=== PATIENT | female | born 1975 | race Caucasian/White ===

== ENCOUNTER 2020-01-16 03:40 | Day surgery (SDC) | payer BC ==
[2020-01-16] MEDS ORDERED: Sodium Chloride 0.9% 10 ML Syringe FLUSH PRN (04:01)
[2020-01-16] MEDS ORDERED: Acetaminophen 325 MG Tab PO ONE (04:02)
[2020-01-16] MEDS ORDERED: Sodium Chloride 0.9% 1,000 ML IV ONE (04:03)
[2020-01-16] MEDS ORDERED: Iopamidol 755 Mg/ML 100 ML Bottle IV ONE (04:35)
[2020-01-16] MEDS ORDERED: Morphine 4 MG/ML VIAL IVPUSH ONE (05:16)
[2020-01-16] MEDS ORDERED: Ondansetron 4 MG/2 ML SDV IVPUSH ONE ×2 (05:18→08:03)
[2020-01-16] MEDS ORDERED: cefOXitin 2 GM Vial IVPUSH ONE (06:15)
[2020-01-16] MEDS: Lactated Ringers 1,000 ML IV SCH ×3 (06:20→21:33)
[2020-01-16] MEDS ORDERED: Ketorolac 60 MG/2 ML SDV IM ONE (06:49)
--- NOTE | 2020-01-16 07:12 | PCM.HP.2 ---
H&P History of Present Illness - General Date of Service: 01/16/20 Admit Problem/Dx: Admission Diagnosis/Problem Admission Diagnosis/Problem Appendicitis History Limitations: Reports: No Limitations - History of Present Illness Initial Comments - Free Text/Narative: Pt presented to the ED with a complaint of abd pain. It was located in the umbilical area. Was seen in the walk in at [facility]. The pain persisted and got worse. Still persisted. On work up noted to have a shift to the left. CT no ilda to have acute appendicitis. Did have a fever. Covid was negative. R upper abdomen Pain Score (Numeric/FACES): 8 - Related Data Allergies/Adverse Reactions: Allergies Allergy/AdvReac Type Severity Reaction Status Date / Time ketoprofen Allergy Swelling Verified 01/16/20 03:49 Home Medications: Home Meds Amitriptyline [Elavil] 50 mg BEDTIME 01/16/20 [History] L.acidoph,Paracasei, B.lactis [Probiotic] 1 each PO BID 01/16/20 [History] Magnesium 400 mg PO DAILY 01/16/20 [History] Nitrofurantoin [place]/Macrocryst [Nitrofurantoin Reeves-MCR] 100 mg BID 01/16/20 [History] [place]-3S/DHA/Epa/Fish Oil/D3 [Fish Oil Gummies] 1 tab DAILY 01/16/20 [History] Thyroid,Pork [Nature-Throid] 130 mg 1700 01/16/20 [History] Thyroid,Pork [Nature-Throid] 195 mg DAILY 01/16/20 [History] Zinc Gluconate-Zinc Picolinate [Zinc] 30 mg PO BEDTIME 01/16/20 [History] buPROPion [Wellbutrin] 150 mg BID 01/16/20 [History] Past Medical History Cardiovascular History: Reports: Hypertension Gastrointestinal History: Reports: GERD Genitourinary History: Reports: None 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: Reports: Endometriosis, Other OB/BYN History: A2 Musculoskeletal History: Reports: Fibromyalgia, Other (See Below) Other Musculoskeletal History: hx hip dysplasia Neurological History: Reports: Migraines Psychiatric History: Reports: Anxiety, Depression Endocrine/Metabolic History: Reports: Hypothyroidism, Obesity/BMI 30+ Oncologic (Cancer) History: Reports: None - Infectious Disease History Infectious Disease History: Reports: Chicken Pox - Past Surgical History Head Surgeries/Procedures: Reports: None HEENT Surgical History: Reports: Adenoidectomy, Myringotomy w Tube(s), Oral Surgery, Tonsillectomy GI Surgical History: Reports: Cholecystectomy, EGD, Hernia Repair/Other Female Surgical History: Reports: Tubal Ligation Oncologic Surgical History: Reports: Bone Marrow Aspiration Social & Family History - Family History Family Medical History: Noncontributory - Tobacco Use Smoking Status *Q: Former Smoker Used Tobacco, but Quit: Yes Month/Year Tobacco Last Used: 1999 - Caffeine Use Caffeine Use: Reports: Coffee, Soda - Recreational Drug Use Recreational Drug Use: No H&P Review of Systems - Review of Systems: Review Of Systems: See Below General: Reports: Fever HEENT: Reports: No Symptoms Pulmonary: Reports: No Symptoms Cardiovascular: Reports: No Symptoms Gastrointestinal: Reports: Abdominal Pain Genitourinary: Reports: No Symptoms Musculoskeletal: Reports: No Symptoms Exam - Exam Exam: See Below - Vital Signs Vital Signs: Last Vital Signs Temp 101.5 F H 01/16/20 05:12 Pulse 103 H 01/16/20 05:12 Resp 18 01/16/20 05:12 BP 127/73 01/16/20 05:12 Pulse Ox 97 01/16/20 05:12 Weight: 99.79 kg - Exam General: Alert, Oriented, Cooperative HEENT: PERRLA, Conjunctiva Clear, EOMI, Pupils Reactive, TMs Clear Lungs: Clear to Auscultation, Normal Respiratory Effort Cardiovascular: Regular Rate, Regular Rhythm GI/Abdominal Exam: Normal Bowel Sounds, Soft, Non-Tender Back Exam: Normal Inspection Extremities: Normal Inspection Skin: Warm, Dry, Intact - Patient Data Lab Results Last 24 hrs: Laboratory Results - last 24 hr 01/16/20 01/16/20 01/16/20 Range/Units 03:58 03:58 03:58 WBC 6.3 (4.5-12.0) X10-3/uL RBC 4.51 (3.23-5.20) x10(6)uL Hgb 13.3 (11.5-15.5) g/dL Hct 41.0 (30.0-51.3) % MCV 91.0 (80-96) fL MCH 29.5 (27.7-33.6) pg MCHC 32.5 (32.2-35.4) g/dL RDW 12.7 (11.5-15.5) % Plt Count 271 (125-369) X10(3)uL MPV 7.4 (7.4-10.4) fL Add Manual Diff Yes Neutrophils % (Manual) 65 (46-82) % Band Neutrophils % 11 H (0-6) % Lymphocytes % (Manual) 17 (13-37) % Monocytes % (Manual) 7 (4-12) % Sodium 139 (135-145) mmol/L Potassium 3.7 (3.5-5.3) mmol/L Chloride 103 (100-110) mmol/L Carbon Dioxide 26 (21-32) mmol/L BUN 6 L (7-18) mg/dL Creatinine 0.8 (0.55-1.02) mg/dL Est Cr Clr Drug Dosing 80.75 mL/min Estimated GFR (MDRD) > 60 (>60) BUN/Creatinine Ratio 7.5 L (9-20) Glucose 131 H (80-116) mg/dL Calcium 8.4 L (8.6-10.2) mg/dL Total Bilirubin 0.9 (0.1-1.3) mg/dL AST 46 H (5-25) IU/L ALT 56 H (12-36) U/L Alkaline Phosphatase 109 (56-112) IU/L Total Protein 7.0 (6.0-8.0) g/dL Albumin 3.1 L (3.5-5.2) g/dL Globulin 3.9 g/dL Albumin/Globulin Ratio 0.8 Amylase 27 (25-115) U/L Lipase (73-393) U/L Urine Color (YELLOW) Urine Appearance (CLEAR) Urine pH (5.0-6.5) Ur Specific [place] (1.010-1.025) Urine Protein (NEGATIVE) mg/dL Urine Glucose (UA) (NORMAL) mg/dL Urine Ketones (NEGATIVE) mg/dL Urine Occult Blood (NEGATIVE) Urine Nitrite (NEGATIVE) Urine Bilirubin (NEGATIVE) Urine Urobilinogen (NEGATIVE) mg/dL Ur Leukocyte Esterase (NEGATIVE) Urine RBC (0-5) Urine WBC (0-5) Ur Squamous Epith Cells (NS,R,O) Urine Bacteria (NS) Urine Mucus (NS) SARS Virus RNA (PCR) (NEGATIVE) 01/16/20 01/16/20 01/16/20 Range/Units 03:58 04:03 05:50 WBC (4.5-12.0) X10-3/uL RBC (3.23-5.20) x10(6)uL Hgb (11.5-15.5) g/dL Hct (30.0-51.3) % MCV (80-96) fL MCH (27.7-33.6) pg MCHC (32.2-35.4) g/dL RDW (11.5-15.5) % Plt Count (125-369) X10(3)uL MPV (7.4-10.4) fL Add Manual Diff Neutrophils % (Manual) (46-82) % Band Neutrophils % (0-6) % Lymphocytes % (Manual) (13-37) % Monocytes % (Manual) (4-12) % Sodium (135-145) mmol/L Potassium (3.5-5.3) mmol/L Chloride (100-110) mmol/L Carbon Dioxide (21-32) mmol/L BUN (7-18) mg/dL Creatinine (0.55-1.02) mg/dL Est Cr Clr Drug Dosing mL/min Estimated GFR (MDRD) (>60) BUN/Creatinine Ratio (9-20) Glucose (80-116) mg/dL Calcium (8.6-10.2) mg/dL Total Bilirubin (0.1-1.3) mg/dL AST (5-25) IU/L ALT (12-36) U/L Alkaline Phosphatase (56-112) IU/L Total Protein (6.0-8.0) g/dL Albumin (3.5-5.2) g/dL Globulin g/dL Albumin/Globulin Ratio Amylase (25-115) U/L Lipase 59 L (73-393) U/L Urine Color Yellow (YELLOW) Urine Appearance Slightly cloudy (CLEAR) Urine pH 6.0 (5.0-6.5) Ur Specific [place] 1.020 (1.010-1.025) Urine Protein 500 H (NEGATIVE) mg/dL Urine Glucose (UA) 100 H (NORMAL) mg/dL Urine Ketones 50 H (NEGATIVE) mg/dL Urine Occult Blood Moderate H (NEGATIVE) Urine Nitrite Negative (NEGATIVE) Urine Bilirubin Negative (NEGATIVE) Urine Urobilinogen Normal (NEGATIVE) mg/dL Ur Leukocyte Esterase Small H (NEGATIVE) Urine RBC 5-10 H (0-5) Urine WBC 5-10 H (0-5) Ur Squamous Epith Cells Few H (NS,R,O) Urine Bacteria Few H (NS) Urine Mucus Few H (NS) SARS Virus RNA (PCR) Negative (NEGATIVE) Result Diagrams: 01/16/20 03:58 01/16/20 03:58 Augustin Results Last 24 hrs: Microbiology 01/16/20 04:00 Influenza Type A Antigen Screen - Final Nasal, Right NEGATIVE INFLUENZA A VIRUS AG REFERENCE RANGE: NEGATIVE Influenza Type B Antigen Screen - Final NEGATIVE INFLUENZA B VIRUS AG REFERENCE RANGE: NEGATIVE Sepsis Event Note - Evaluation Sepsis Screening Result: Possible Sepsis Risk - Focused Exam Vital Signs: Vital Signs Temp Pulse Resp BP Pulse Ox 01/16/20 05:12 101.5 F H 103 H 18 127/73 97 01/16/20 03:40 103.1 F H 109 H 22 H 137/87 100 Date Exam was Performed: 01/16/20 Time Exam was Performed: 07:07 *Q Meaningful Use (ADM) - VTE *Q VTE Pharmacological Contraindications *Q: Patient Scheduled Surgery - Problem List (1) Acute appendicitis SNOMED Code(s): 27753302 ICD Code: K35.80 - UNSPECIFIED ACUTE APPENDICITIS Status: Acute Current Visit: Yes Qualifiers: Acute appendicitis type: with localized peritonitis Appendicitis gangrene presence: unspecified whether gangrene present Appendicitis perforation presence: without perforation Appendicitis abscess presence: without abscess Qualified Code(s): K35.30 - Acute appendicitis with localized peritonitis, without perforation or gangrene Problem List Initiated/Reviewed/Updated: Yes Orders Last 24hrs: Active Orders 24 hr Category Date Time Status Patient Status [ADT] Routine ADT 01/16/20 07:05 Ordered Patient to Empty Bladder [RC] ASDIRECTED Care 01/16/20 07:05 Ordered Verify Patient Consent Obtain [RC] ASDIRECTED Care 01/16/20 07:05 Ordered Nothing Per Oral Diet [DIET] Diet 01/16/20 Breakfast Ordered Abdomen Pelvis w Cont [CT] Stat Exams 01/16/20 04:02 Taken CULTURE BLOOD [BC] Urgent Lab 01/16/20 03:58 Received CULTURE BLOOD [BC] Urgent Lab 01/16/20 04:05 Received Lactated Ringers [Ringers, Lactated] 1,000 ml Med 01/16/20 05:45 Active IV ASDIRECTED Sodium Chloride 0.9% [Saline Flush] Med 01/16/20 04:01 Active 10 ml FLUSH ASDIRECTED PRN Blood Culture x2 Reflex Set [OM.PC] Urgent Oth 01/16/20 04:00 Ordered Isolation [COMM] Routine Oth 01/16/20 04:01 Ordered Peripheral IV Insertion Adult [OM.PC] Routine Oth 01/16/20 04:00 Ordered Sequential Compression Device [OM.PC] Routine Oth 01/16/20 07:05 Ordered Resuscitation Status Routine Resus Stat 01/16/20 07:05 Ordered Medication Orders Lactated Ringer's (Ringers, Lactated) 1,000 mls @ 125 mls/hr IV ASDIRECTED SUGAR Last Admin: 01/16/20 06:20 Dose: 125 mls/hr Documented by: JENY Sodium Chloride (Saline Flush) 10 ml FLUSH ASDIRECTED PRN PRN Reason: Keep Vein Open Assessment/Plan Comment:: Will plan a lap approach if possible. She reports a mesh repair of a ventral wall hernia. If needed will convert to open. Risks of bleeding, infection, injury to bowel bladder and blood vessels explained to the pt. They expressed understanding and asks us to proceed. - Mortality Measure Prognosis:: Good
--- NOTE | 2020-01-16 07:31 | EDM.PDOC ---
ED HPI GENERAL MEDICAL PROBLEM - General Chief Complaint: Fever Stated Complaint: SHAKING Time Seen by Provider: 01/16/20 04:00 Source of Information: Reports: Patient History Limitations: Reports: No Limitations - History of Present Illness INITIAL COMMENTS - FREE TEXT/NARRATIVE: pt c/o dull pain all across lower abd X 3 days, non radiating, report fever and nausea, denies emesis or changes with her bowel movements, indicate a Hx of abd hernia repair and denies any other Hx of abd surgeries. denies any blood in stool, any urinary sx or any other associated sx or concerns. 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 R upper abdomen Pain Score (Numeric/FACES): 8 - Related Data Allergies Allergy/AdvReac Type Severity Reaction Status Date / Time ketoprofen Allergy Swelling Verified 01/16/20 03:49 Home Meds: Home Meds Amitriptyline [Elavil] 50 mg BEDTIME 01/16/20 [History] L.acidoph,Paracasei, B.lactis [Probiotic] 1 each PO BID 01/16/20 [History] Magnesium 400 mg PO DAILY 01/16/20 [History] Nitrofurantoin [place]/Macrocryst [Nitrofurantoin Miner-MCR] 100 mg BID 01/16/20 [History] [place]-3S/DHA/Epa/Fish Oil/D3 [Fish Oil Gummies] 1 tab DAILY 01/16/20 [History] Thyroid,Pork [Nature-Throid] 130 mg 1700 01/16/20 [History] Thyroid,Pork [Nature-Throid] 195 mg DAILY 01/16/20 [History] Zinc Gluconate-Zinc Picolinate [Zinc] 30 mg PO BEDTIME 01/16/20 [History] buPROPion [Wellbutrin] 150 mg BID 01/16/20 [History] Past Medical History Cardiovascular History: Reports: Hypertension Gastrointestinal History: Reports: GERD Genitourinary History: Reports: None 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: Reports: Endometriosis, 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: A2 Musculoskeletal History: Reports: Fibromyalgia, Other (See Below) Other Musculoskeletal History: hx hip dysplasia Neurological History: Reports: Migraines Psychiatric History: Reports: Anxiety, Depression Endocrine/Metabolic History: Reports: Hypothyroidism, Obesity/BMI 30+ Oncologic (Cancer) History: Reports: None - Infectious Disease History Infectious Disease History: Reports: Chicken Pox - Past Surgical History Head Surgeries/Procedures: Reports: None HEENT Surgical History: Reports: Adenoidectomy, Myringotomy w Tube(s), Oral Surgery, Tonsillectomy GI Surgical History: Reports: Cholecystectomy, EGD, Hernia Repair/Other Female Surgical History: Reports: Tubal Ligation Oncologic Surgical History: Reports: Bone Marrow Aspiration Social & Family History - Family History Family Medical History: Noncontributory - Tobacco Use Smoking Status *Q: Former Smoker Used Tobacco, but Quit: Yes Month/Year Tobacco Last Used: 1999 - Caffeine Use Caffeine Use: Reports: Coffee, Soda - Recreational Drug Use Recreational Drug Use: No ED ROS GENERAL - Review of Systems Review Of Systems: See Below Constitutional: Reports: Fever, Fatigue HEENT: Reports: No Symptoms Respiratory: Reports: No Symptoms Cardiovascular: Reports: No Symptoms GI/Abdominal: Reports: Abdominal Pain, Anorexia, Nausea. Denies: Black Stool, Bloody Stool, Diarrhea, Distension, Vomiting : Reports: No Symptoms Musculoskeletal: Reports: No Symptoms Skin: Reports: No Symptoms Neurological: Reports: No Symptoms ED EXAM, GENERAL - Physical Exam Exam: See Below Exam Limited By: No Limitations General Appearance: Alert, Mild Distress, Moderate Distress Eye Exam: Bilateral Eye: Normal Inspection Ears: Normal External Exam Nose: Normal Inspection Throat/Mouth: Normal Inspection, Normal Oropharynx Head: Atraumatic, Normocephalic Neck: Normal Inspection, Supple, Non-Tender Respiratory/Chest: No Respiratory Distress, Lungs Clear Cardiovascular: Normal Peripheral Pulses, Regular Rate, Rhythm, No Edema, No Murmur GI/Abdominal: Normal Bowel Sounds, Soft, Tender (tender across lower abd , no guarding, pt is obese .) Back Exam: Normal Inspection Extremities: Normal Inspection Neurological: Alert, Oriented, CN II-XII Intact, No Motor/Sensory Deficits Course - Vital Signs Text/Narrative:: labs and CT results were explained to pt. pt is comfortable with fluids , zofran and morphine, last meal was at 9 PM , pt had PO fluids around 3 am. pt has acute appendicitis. Dr Craig was consulted and he will assume pt care. Last Recorded V/S: Last Vital Signs Temp 38.6 C H 01/16/20 05:12 Pulse 103 H 01/16/20 05:12 Resp 18 01/16/20 05:12 BP 127/73 01/16/20 05:12 Pulse Ox 97 01/16/20 05:12 - Orders/Labs/Meds Orders: Active Orders 24 hr Category Date Time Status Patient Status [ADT] Routine ADT 01/16/20 07:05 Active Patient to Empty Bladder [RC] ASDIRECTED Care 01/16/20 07:05 Active Verify Patient Consent Obtain [RC] ASDIRECTED Care 01/16/20 07:05 Active Nothing Per Oral Diet [DIET] Diet 01/16/20 Breakfast Ordered Abdomen Pelvis w Cont [CT] Stat Exams 01/16/20 04:02 Taken CULTURE BLOOD [BC] Urgent Lab 01/16/20 03:58 Received CULTURE BLOOD [BC] Urgent Lab 01/16/20 04:05 Received Lactated Ringers [Ringers, Lactated] 1,000 ml Med 01/16/20 05:45 Active IV ASDIRECTED Sodium Chloride 0.9% [Saline Flush] Med 01/16/20 04:01 Active 10 ml FLUSH ASDIRECTED PRN Blood Culture x2 Reflex Set [OM.PC] Urgent Oth 01/16/20 04:00 Ordered Isolation [COMM] Routine Oth 01/16/20 04:01 Ordered Peripheral IV Insertion Adult [OM.PC] Routine Oth 01/16/20 04:00 Ordered Sequential Compression Device [OM.PC] Routine Oth 01/16/20 07:05 Ordered Resuscitation Status Routine Resus Stat 01/16/20 07:05 Ordered Medication Orders Lactated Ringer's (Ringers, Lactated) 1,000 mls @ 125 mls/hr IV ASDIRECTED SUGAR Last Admin: 01/16/20 06:20 Dose: 125 mls/hr Documented by: JENY Sodium Chloride (Saline Flush) 10 ml FLUSH ASDIRECTED PRN PRN Reason: Keep Vein Open Labs: Laboratory Tests 01/16/20 01/16/20 01/16/20 Range/Units 03:58 03:58 03:58 WBC 6.3 (4.5-12.0) X10-3/uL RBC 4.51 (3.23-5.20) x10(6)uL Hgb 13.3 (11.5-15.5) g/dL Hct 41.0 (30.0-51.3) % MCV 91.0 (80-96) fL MCH 29.5 (27.7-33.6) pg MCHC 32.5 (32.2-35.4) g/dL RDW 12.7 (11.5-15.5) % Plt Count 271 (125-369) X10(3)uL MPV 7.4 (7.4-10.4) fL Add Manual Diff Yes Neutrophils % (Manual) 65 (46-82) % Band Neutrophils % 11 H (0-6) % Lymphocytes % (Manual) 17 (13-37) % Monocytes % (Manual) 7 (4-12) % Sodium 139 (135-145) mmol/L Potassium 3.7 (3.5-5.3) mmol/L Chloride 103 (100-110) mmol/L Carbon Dioxide 26 (21-32) mmol/L BUN 6 L (7-18) mg/dL Creatinine 0.8 (0.55-1.02) mg/dL Est Cr Clr Drug Dosing 80.75 mL/min Estimated GFR (MDRD) > 60 (>60) BUN/Creatinine Ratio 7.5 L (9-20) Glucose 131 H (80-116) mg/dL Calcium 8.4 L (8.6-10.2) mg/dL Total Bilirubin 0.9 (0.1-1.3) mg/dL AST 46 H (5-25) IU/L ALT 56 H (12-36) U/L Alkaline Phosphatase 109 (56-112) IU/L Total Protein 7.0 (6.0-8.0) g/dL Albumin 3.1 L (3.5-5.2) g/dL Globulin 3.9 g/dL Albumin/Globulin Ratio 0.8 Amylase 27 (25-115) U/L Lipase (73-393) U/L Urine Color (YELLOW) Urine Appearance (CLEAR) Urine pH (5.0-6.5) Ur Specific [place] (1.010-1.025) Urine Protein (NEGATIVE) mg/dL Urine Glucose (UA) (NORMAL) mg/dL Urine Ketones (NEGATIVE) mg/dL Urine Occult Blood (NEGATIVE) Urine Nitrite (NEGATIVE) Urine Bilirubin (NEGATIVE) Urine Urobilinogen (NEGATIVE) mg/dL Ur Leukocyte Esterase (NEGATIVE) Urine RBC (0-5) Urine WBC (0-5) Ur Squamous Epith Cells (NS,R,O) Urine Bacteria (NS) Urine Mucus (NS) SARS Virus RNA (PCR) (NEGATIVE) 01/16/20 01/16/20 01/16/20 Range/Units 03:58 04:03 05:50 WBC (4.5-12.0) X10-3/uL RBC (3.23-5.20) x10(6)uL Hgb (11.5-15.5) g/dL Hct (30.0-51.3) % MCV (80-96) fL MCH (27.7-33.6) pg MCHC (32.2-35.4) g/dL RDW (11.5-15.5) % Plt Count (125-369) X10(3)uL MPV (7.4-10.4) fL Add Manual Diff Neutrophils % (Manual) (46-82) % Band Neutrophils % (0-6) % Lymphocytes % (Manual) (13-37) % Monocytes % (Manual) (4-12) % Sodium (135-145) mmol/L Potassium (3.5-5.3) mmol/L Chloride (100-110) mmol/L Carbon Dioxide (21-32) mmol/L BUN (7-18) mg/dL Creatinine (0.55-1.02) mg/dL Est Cr Clr Drug Dosing mL/min Estimated GFR (MDRD) (>60) BUN/Creatinine Ratio (9-20) Glucose (80-116) mg/dL Calcium (8.6-10.2) mg/dL Total Bilirubin (0.1-1.3) mg/dL AST (5-25) IU/L ALT (12-36) U/L Alkaline Phosphatase (56-112) IU/L Total Protein (6.0-8.0) g/dL Albumin (3.5-5.2) g/dL Globulin g/dL Albumin/Globulin Ratio Amylase (25-115) U/L Lipase 59 L (73-393) U/L Urine Color Yellow (YELLOW) Urine Appearance Slightly cloudy (CLEAR) Urine pH 6.0 (5.0-6.5) Ur Specific [place] 1.020 (1.010-1.025) Urine Protein 500 H (NEGATIVE) mg/dL Urine Glucose (UA) 100 H (NORMAL) mg/dL Urine Ketones 50 H (NEGATIVE) mg/dL Urine Occult Blood Moderate H (NEGATIVE) Urine Nitrite Negative (NEGATIVE) Urine Bilirubin Negative (NEGATIVE) Urine Urobilinogen Normal (NEGATIVE) mg/dL Ur Leukocyte Esterase Small H (NEGATIVE) Urine RBC 5-10 H (0-5) Urine WBC 5-10 H (0-5) Ur Squamous Epith Cells Few H (NS,R,O) Urine Bacteria Few H (NS) Urine Mucus Few H (NS) SARS Virus RNA (PCR) Negative (NEGATIVE) Meds: Medications Generic Name Dose Route Start Last Admin Trade Name Freq PRN Reason Stop Dose Admin Lactated Ringer's 1,000 mls @ 125 mls/hr 01/16/20 05:45 01/16/20 06:20 Ringers, Lactated IV 125 mls/hr ASDIRECTED SUGAR Administration Sodium Chloride 10 ml 01/16/20 04:01 Saline Flush FLUSH ASDIRECTED PRN Keep Vein Open Discontinued Medications Generic Name Dose Route Start Last Admin Trade Name Freq PRN Reason Stop Dose Admin Acetaminophen 650 mg 01/16/20 04:02 01/16/20 04:13 Tylenol PO 01/16/20 04:03 650 mg NOW ONE Administration Cefoxitin Sodium 2 gm 01/16/20 06:15 01/16/20 06:35 Mefoxin IVPUSH 01/16/20 06:16 2 gm ONETIME ONE Administration Sodium Chloride 1,000 mls @ 200 mls/hr 01/16/20 04:03 01/16/20 04:17 Normal Saline IV 01/16/20 09:02 200 mls/hr .BOLUS ONE Administration Iopamidol 100 ml 01/16/20 04:35 01/16/20 04:46 Isovue-370 (76%) IV 01/16/20 04:36 100 ml . DIRECTED ONE Administration Morphine Sulfate 4 mg 01/16/20 05:16 01/16/20 05:40 Morphine IVPUSH 01/16/20 05:17 4 mg ONETIME ONE Administration Ondansetron HCl 4 mg 01/16/20 05:18 01/16/20 05:38 Zofran IVPUSH 01/16/20 05:19 4 mg ONETIME ONE Administration Departure - Departure Time of Disposition: 06:05 Disposition: Admitted As Inpatient 66 Clinical Impression: Acute appendicitis Qualifiers: Acute appendicitis type: with localized peritonitis Appendicitis gangrene presence: unspecified whether gangrene present Appendicitis perforation presence: without perforation Appendicitis abscess presence: without abscess Qualified Code(s): K35.30 - Acute appendicitis with localized peritonitis, without perforation or gangrene - Discharge Information Referrals: PCP,Not In Area [Primary Care Provider] - Sepsis Event Note (ED) - Evaluation Sepsis Screening Result: Possible Sepsis Risk - Focused Exam Vital Signs: Vital Signs Temp Pulse Resp BP Pulse Ox 01/16/20 05:12 38.6 C H 103 H 18 127/73 97 01/16/20 03:40 39.5 C H 109 H 22 H 137/87 100 - My Orders Last 24 Hours: My Active Orders 01/16/20 03:58 CULTURE BLOOD [BC] Urgent 01/16/20 04:00 Blood Culture x2 Reflex Set [OM.PC] Urgent Peripheral IV Insertion Adult [OM.PC] Routine 01/16/20 04:01 Sodium Chloride 0.9% [Saline Flush] 10 ml FLUSH ASDIRECTED PRN Isolation [COMM] Routine 01/16/20 04:02 Abdomen Pelvis w Cont [CT] Stat 01/16/20 04:05 CULTURE BLOOD [BC] Urgent - Assessment/Plan Last 24 Hours: My Active Orders 01/16/20 03:58 CULTURE BLOOD [BC] Urgent 01/16/20 04:00 Blood Culture x2 Reflex Set [OM.PC] Urgent Peripheral IV Insertion Adult [OM.PC] Routine 01/16/20 04:01 Sodium Chloride 0.9% [Saline Flush] 10 ml FLUSH ASDIRECTED PRN Isolation [COMM] Routine 01/16/20 04:02 Abdomen Pelvis w Cont [CT] Stat 01/16/20 04:05 CULTURE BLOOD [BC] Urgent
[2020-01-16] MEDS ORDERED: Lidocaine 1% with EPINEPHrine 1:100,000 20 ML MDV INJECT ONE (08:00)
[2020-01-16] MEDS ORDERED: Bupivacaine 0.5% 30 ML SDV INJECT ONE (08:00)
[2020-01-16] MEDS ORDERED: Succinylcholine 200 MG/10 ML MDV IV ONE (08:03)
[2020-01-16] MEDS ORDERED: Rocuronium 100 MG/10 ML MDV IV ONE (08:03)
[2020-01-16] MEDS ORDERED: fentaNYL 100 MCG/2 ML SDV IV ONE (08:03)
[2020-01-16] MEDS ORDERED: Lidocaine 2% 5 ML SDV INJECT ONE (08:03)
[2020-01-16] MEDS ORDERED: Propofol 200 MG/20 ML SDV IV ONE (08:03)
[2020-01-16] MEDS ORDERED: Lactated Ringers 1,000 ML IV ONE (08:03)
[2020-01-16] MEDS ORDERED: Midazolam 1 MG/ML 2 ML SDV IV ONE (08:03)
[2020-01-16] MEDS ORDERED: Neostigmine Methylsulfate 10 MG/10 ML MDV IVPUSH ONE (08:03)
[2020-01-16] MEDS ORDERED: Glycopyrrolate 0.2 MG/ML 5 ML MDV IV ONE (08:03)
[2020-01-16] MEDS ORDERED: Dexamethasone 4 MG/ML 5 ML MDV IVPUSH ONE (08:03)
[2020-01-16] MEDS ORDERED: HYDROmorphone 2 MG/ML SDV IV ONE (08:03)
--- NOTE | 2020-01-16 09:11 | PCM.OPNOTE ---
- General Post-Op/Procedure Note Date of Surgery/Procedure: 01/16/20 Operative Procedure(s): lap appendectomy Findings: suppurative appendix Pre Op Diagnosis: appendicitis Post-Op Diagnosis: Same Anesthesia Technique: General ET Tube, Local (9 ml 1% lido with epi/0.5% buvipicaine) Primary Surgeon: Sharath Spangler Anesthesia Provider: Troy Masters Pathology: appendix Complications: None Condition: Good Free Text/Narrative:: see dictation
[2020-01-16] MEDS ORDERED: cefOXitin 2 GM in Sodium Chloride 0.9% 50 ML IV SCH (09:15)
[2020-01-16] MEDS: Acetaminophen/HYDROcodone 325-5 MG Tab PO PRN ×3 (10:44→22:03)
[2020-01-16] MEDS: cefOXitin 2 GM Vial IVPUSH SCH ×3 (13:53→23:42)
[2020-01-16] MEDS ORDERED: Nitrofurantoin Monohydrate/Macrocrystalline 100 MG Cap PO SCH (14:45)
[2020-01-16] MEDS ORDERED: THYROID 65 MG PO SCH (17:00)
[2020-01-16] MEDS ORDERED: AMITRIPTYLINE 50 MG PO SCH (21:00)
[2020-01-16] MEDS: Nitrofurantoin Monohydrate/Macrocrystalline 100 MG Cap PO SCH (21:32)
[2020-01-17] MEDS: Acetaminophen/HYDROcodone 325-5 MG Tab PO PRN ×2 (02:11→09:06)
[2020-01-17] MEDS: cefOXitin 2 GM Vial IVPUSH SCH (05:35)
[2020-01-17] MEDS: Lactated Ringers 1,000 ML IV SCH (05:40)
[2020-01-17 06:33] VITALS: BP 136/87
--- NOTE | 2020-01-17 06:36 | PCM.SURGPN ---
- General Info Date of Service: 01/17/20 POD#: 1 Functional Status: Reports: Pain Controlled, Tolerating Diet, Ambulating - Review of Systems General: Reports: No Symptoms Pulmonary: Reports: No Symptoms Cardiovascular: Reports: No Symptoms Gastrointestinal: Reports: Abdominal Pain Skin: Reports: No Symptoms - Patient Data Vitals - Most Recent: Last Vital Signs Temp 98.2 F 01/17/20 05:00 Pulse 74 01/17/20 05:00 Resp 18 01/17/20 05:00 BP 136/87 01/17/20 05:00 Pulse Ox 99 01/17/20 05:00 Weight - Most Recent: 99.79 kg Lab Results Last 24 Hrs: Laboratory Results - last 24 hr 01/16/20 Range/Units 05:50 SARS Virus RNA (PCR) Negative (NEGATIVE) [place] Results Last 24 Hrs: Microbiology 01/16/20 03:58 Aerobic Blood Culture - Preliminary Blood - Venous NO GROWTH AFTER 1 DAY Anaerobic Blood Culture - Preliminary NO GROWTH AFTER 1 DAY 01/16/20 04:05 Aerobic Blood Culture - Preliminary Blood - Venous - Lab Draw NO GROWTH AFTER 1 DAY Anaerobic Blood Culture - Preliminary NO GROWTH AFTER 1 DAY 01/16/20 04:00 Influenza Type A Antigen Screen - Final Nasal, Right NEGATIVE INFLUENZA A VIRUS AG REFERENCE RANGE: NEGATIVE Influenza Type B Antigen Screen - Final NEGATIVE INFLUENZA B VIRUS AG REFERENCE RANGE: NEGATIVE Med Orders - Current: Current Medications Hydrocodone Bitart/Acetaminophen ([place]ume 325-5 Mg) 2 tab PO Q4H PRN PRN Reason: Pain (moderate 4-6) Last Admin: 01/17/20 02:11 Dose: 2 tab Documented by: Amitriptyline HCl (Elavil) 0 mg PO BEDTIME [facility] Last Admin: 01/16/20 21:32 Dose: 50 mg Documented by: Bupropion HCl (Wellbutrin) 150 mg PO BID [facility] Last Admin: 01/16/20 21:29 Dose: Not Given Documented by: Cefoxitin Sodium (Mefoxin) 2 gm IVPUSH Q6H [facility] Last Admin: 01/17/20 05:35 Dose: 2 gm Documented by: Lactated Ringer's (Ringers, Lactated) 1,000 mls @ 125 mls/hr IV ASDIRECTED [facility] Last Admin: 01/17/20 05:40 Dose: 125 mls/hr Documented by: Nitrofurantoin Macrocrystals (Macrobid) 100 mg PO BID [facility] Last Admin: 01/16/20 21:32 Dose: 100 mg Documented by: Non-Formulary Medication 1 Each ( Nature Thyroid, Pork 65 Mg) 130 mg PO 1700 SUGAR Last Admin: 01/16/20 17:45 Dose: 130 mg Documented by: Non-Formulary Medication 1 Each ( Nature Thyroid, Pork 65 Mg) 195 mg PO DAILY [facility] Sodium Chloride (Saline Flush) 10 ml FLUSH ASDIRECTED PRN PRN Reason: Keep Vein Open Last Admin: 01/16/20 14:01 Dose: 10 ml Documented by: Discontinued Medications Acetaminophen (Tylenol) 650 mg PO NOW ONE Stop: 01/16/20 04:03 Last Admin: 01/16/20 04:13 Dose: 650 mg Documented by: Bupivacaine HCl (Marcaine 0.5%) 10 ml INJECT .STK-MED ONE Stop: 01/16/20 08:01 Last Admin: 01/16/20 08:00 Dose: 10 ml Documented by: Cefoxitin Sodium (Mefoxin) 2 gm IVPUSH ONETIME ONE Stop: 01/16/20 06:16 Last Admin: 01/16/20 06:35 Dose: 2 gm Documented by: Sodium Chloride (Normal Saline) 1,000 mls @ 200 mls/hr IV .BOLUS ONE Stop: 01/16/20 09:02 Last Admin: 01/16/20 04:17 Dose: 200 mls/hr Documented by: Iopamidol (Isovue-370 (76%)) 100 ml IV . DIRECTED ONE Stop: 01/16/20 04:36 Last Admin: 01/16/20 04:46 Dose: 100 ml Documented by: Lidocaine/Epinephrine (Xylocaine 1% With Epinephrine 1:100,000) 10 ml INJECT .STK-MED ONE Stop: 01/16/20 08:01 Last Admin: 01/16/20 08:00 Dose: 10 ml Documented by: Morphine Sulfate (Morphine) 4 mg IVPUSH ONETIME ONE Stop: 01/16/20 05:17 Last Admin: 01/16/20 05:40 Dose: 4 mg Documented by: Ondansetron HCl (Zofran) 4 mg IVPUSH ONETIME ONE Stop: 01/16/20 05:19 Last Admin: 01/16/20 05:38 Dose: 4 mg Documented by: - Exam Wound/Incisions: Healing Well, Dressing Dry and Intact General: Alert, Oriented Lungs: Clear to Auscultation, Normal Respiratory Effort Cardiovascular: Regular Rate, Regular Rhythm GI/Abdominal Exam: Normal Bowel Sounds, Soft, Non-Tender, Tender (over biopsy site ) Skin: Warm, Dry, Intact Sepsis Event Note - Evaluation Sepsis Screening Result: No Definite Risk - Focused Exam Vital Signs: Vital Signs Temp Pulse Resp BP Pulse Ox 01/17/20 05:00 98.2 F 74 18 136/87 99 01/17/20 00:00 98.0 F 78 16 138/83 96 01/16/20 21:58 97.6 F 75 16 118/70 97 Date Exam was Performed: 01/17/20 Time Exam was Performed: 06:34 - Problem List & Annotations (1) Acute appendicitis SNOMED Code(s): 03207135 Code(s): K35.80 - UNSPECIFIED ACUTE APPENDICITIS Status: Resolved Current Visit: Yes Qualifiers: Acute appendicitis type: with localized peritonitis Appendicitis gangrene presence: unspecified whether gangrene present Appendicitis perforation presence: without perforation Appendicitis abscess presence: without abscess Qualified Code(s): K35.30 - Acute appendicitis with localized peritonitis, without perforation or gangrene - Problem List Review Problem List Initiated/Reviewed/Updated: Yes - My Orders Last 24 Hours: Active Orders 24 hr Category Date Time Status Patient Status [ADT] Routine ADT 01/16/20 07:05 Active Patient Status [ADT] Routine ADT 01/16/20 09:08 Active Ambulate [RC] Q4HPRN Care 01/16/20 09:08 Active Bladder Scan [RC] ASDIRECTED Care 01/16/20 14:04 Active Oxygen Therapy [RC] PRN Care 01/16/20 09:08 Active RT Incentive Spirometry [RC] Q2HWA Care 01/16/20 09:07 Active Vital Signs [RC] Q4H Care 01/16/20 09:07 Active Soft Diet [DIET] Diet 01/16/20 Dinner Ordered CBC WITH AUTO DIFF [HEME] AM Lab 01/17/20 05:11 Ordered Acetaminophen/HYDROcodone [Hume 325-5 MG] Med 01/16/20 09:07 Active 2 tab PO Q4H PRN Amitriptyline [Elavil] Med 01/16/20 21:00 Active 0 mg PO BEDTIME Lactated Ringers [Ringers, Lactated] 1,000 ml Med 01/16/20 05:45 Active IV ASDIRECTED Nature Thyroid, Pork Med 01/16/20 17:00 Active 130 mg PO 1700 Nature Thyroid, Pork Med 01/17/20 09:00 Active 195 mg PO DAILY Nitrofurantoin [place]/Macrocryst [Macrobid] Med 01/16/20 21:00 Active 100 mg PO BID buPROPion [Wellbutrin] Med 01/16/20 21:00 Active 150 mg PO BID cefOXitin [Mefoxin] Med 01/16/20 12:30 Active 2 gm IVPUSH Q6H Sequential Compression Device [OM.PC] Routine Oth 01/16/20 07:05 Ordered Resuscitation Status Routine Resus Stat 01/16/20 07:05 Ordered Medication Orders Hydrocodone Bitart/Acetaminophen (Hume 325-5 Mg) 2 tab PO Q4H PRN PRN Reason: Pain (moderate 4-6) Last Admin: 01/17/20 02:11 Dose: 2 tab Documented by: Admin: 01/16/20 22:03 Dose: 2 tab Documented by: Admin: 01/16/20 17:52 Dose: 2 tab Documented by: Admin: 01/16/20 10:44 Dose: 2 tab Documented by: OSKAR Amitriptyline HCl (Elavil) 0 mg PO BEDTIME [facility] Last Admin: 01/16/20 21:32 Dose: 50 mg Documented by: TERESSA Bupropion HCl (Wellbutrin) 150 mg PO BID [facility] Last Admin: 01/16/20 21:29 Dose: Not Given Documented by: Admin: 01/16/20 17:46 Dose: 150 mg Documented by: CALE Cefoxitin Sodium (Mefoxin) 2 gm IVPUSH Q6H [facility] Last Admin: 01/17/20 05:35 Dose: 2 gm Documented by: Admin: 01/16/20 23:42 Dose: 2 gm Documented by: Admin: 01/16/20 19:34 Dose: 2 gm Documented by: Admin: 01/16/20 13:53 Dose: 2 gm Documented by: OSKAR Lactated Ringer's (Ringers, Lactated) 1,000 mls @ 125 mls/hr IV ASDIRECTED [facility] Last Admin: 01/17/20 05:40 Dose: 125 mls/hr Documented by: Infusion: 01/17/20 05:33 Dose: 125 mls/hr Documented by: Admin: 01/16/20 21:33 Dose: 125 mls/hr Documented by: Infusion: 01/16/20 21:33 Dose: 125 mls/hr Documented by: Admin: 01/16/20 13:46 Dose: 125 mls/hr Documented by: Infusion: 01/16/20 13:46 Dose: 125 mls/hr Documented by: Admin: 01/16/20 06:20 Dose: 125 mls/hr Documented by: JENY Nitrofurantoin Macrocrystals (Macrobid) 100 mg PO BID [facility] Last Admin: 01/16/20 21:32 Dose: 100 mg Documented by: TERESSA Non-Formulary Medication 1 Each ( Nature Thyroid, Pork 65 Mg) 130 mg PO 1700 [facility] Last Admin: 01/16/20 17:45 Dose: 130 mg Documented by: CALE Non-Formulary Medication 1 Each ( Nature Thyroid, Pork 65 Mg) 195 mg PO DAILY [facility] Sodium Chloride (Saline Flush) 10 ml FLUSH ASDIRECTED PRN PRN Reason: Keep Vein Open Last Admin: 01/16/20 14:01 Dose: 10 ml Documented by: OSKAR - Assessment Assessment (Free Text/Narrative):: doing well. - Plan Plan (Free Text/Narrative):: anticipate d/c today
[2020-01-17] MEDS ORDERED: THYROID 65 MG PO SCH (09:00)
[2020-01-17] MEDS: Nitrofurantoin Monohydrate/Macrocrystalline 100 MG Cap PO SCH (09:02)
--- NOTE | 2020-01-17 10:35 | PCM.SN.2 ---
- Free Text/Narrative Note: WBC is up will give 5 days fo antibiotics.
[2020-01-17 13:04] VITALS: PULSE 85
--- NOTE | 2020-01-17 14:17 | OR ---
DATE OF OPERATION: 01/16/2020 SURGEON: Sharath Spangler MD PROCEDURE PERFORMED: Laparoscopic appendectomy. PREOPERATIVE DIAGNOSIS: Acute appendicitis. POSTOPERATIVE DIAGNOSIS: Acute appendicitis. INDICATIONS FOR PROCEDURE: This is a 44-year-old white female who presented to the emergency room last month with a complaint of abdominal pain located in the periumbilical area. Subsequent workup revealed what appeared to be an acute appendicitis. She was offered and accepted a laparoscopic appendectomy. DESCRIPTION OF OPERATION: After an excellent general anesthetic was administered via endotracheal tube, the patient was prepped and draped in usual sterile manner. 1:1 mixture of 1% lidocaine with epinephrine and 0.5% bupivacaine was used to infiltrate the area around the umbilicus. A small vertical midline incision was carried out using a #15 scalpel blade. Blunt dissection was then carried out exposing the midline fascia. Two stay sutures of 0 Vicryl were placed on either side of the midline, which was then incised. The abdominal cavity was entered. A 10.5 mm Melania trocar was inserted into the patient's abdomen. The patient's abdomen was then insufflated to 15 mmHg. Under direct visualization, a 5 mm port was placed in the right lower quadrant at the approximate level of the anterior axillary line and one below the midline insertion between the symphysis pubis and the periumbilical port. An inflamed appendix was identified. This was carefully dissected back. Due to the degree of inflammation, we ended up dissecting the mesoappendix piecemeal to mobilize the appendix, and we did clip sections of the mesoappendix as we divided. The appendiceal artery did have multiple clips placed for adequate control. After exposing the base of the appendix at the cecum, an Endo-ODALIS using a 3.5 mm reload was then fired across the base. The specimen was passed into a specimen bag and delivered out through the umbilical port. The area was irrigated. Several more clips were placed on the area of the appendiceal artery to ensure that we got the entire engorged area and maintained control. After irrigating until clear, the pneumoperitoneum was released. The trocars were removed under direct visualization. Periumbilical fascial defect was closed with a figure-of- eight 0 Vicryl and the 2 stay sutures were tied to each other. [place] were used to close the skin. Needle, sponge, and instrument counts were reported as correct. The patient was taken to recovery room in good condition. /[id number] /MODL
== END 2020-01-17 11:52 | disposition home or self-care (01) ==
LOC: FB.ED 03:40 → FB.SDS 08:02 → FB.MS 10:02 → FB.SDS 01-17 11:52
PROVIDERS: ATTEND Surgery
DX: K35.80 Unspecified acute appendicitis (principal); N80.5 Endometriosis of intestine; Z11.59 Encounter for screening for other viral diseases; I10 Essential (primary) hypertension; E66.9 Obesity, unspecified; Z90.49 Acquired absence of other specified parts of digestive tract; Z88.8 Allergy status to other drugs, medicaments and biological substances; Z79.899 Other long term (current) drug therapy; Z98.890 Other specified postprocedural states; Z87.891 Personal history of nicotine dependence; Z68.36 Body mass index [BMI] 36.0-36.9, adult
CPT/HCPCS: 36415; 44970; 74177; 80053; 81001; 82150; 83690; 85025; 87040; 87635; 87804; 94150; 96361; 96374; 96375; 99285; A9270; J0330; J0694; J1100; J1170; J2001; J2250; J2270; J2405; J2704; J2710; J3010; J3490; J7030; J7120; Q9967; 88304; U0002